=== PATIENT | male | born 1965 | race Two or more races ===

== ENCOUNTER 2024-11-18 14:38 | Emergency (ER) | payer MEDICAID, SELFPAY ==
[2024-11-18 14:38] VITALS: BMI 27.4
--- NOTE | 2024-11-18 15:19 | XR_ITS ---
Examination: PA lateral chest 2 views TECHNIQUE: Upright PA lateral chest 2 views Exam date and time: November 18, 2024 1558 hours Comparison 05/19/2024 INDICATIONS: Coughing today FINDINGS: Normal heart size Mild scarring in the lingular segment No interval pneumonia or pulmonary edema IMPRESSION: No interval pneumonia or pulmonary edema
[2024-11-18 15:25] VITALS: BP 132/82; PULSE 68; RESP 18; TEMP 36.9; O2SAT 95
[2024-11-18] MEDS: ALBUTEROL/IPRATROPIUM (Duoneb) RT SOL 3 ML NEBU INH (15:39)
[2024-11-18 15:41] VITALS: PULSE 62; RESP 18; O2SAT 97
[2024-11-18] MEDS: DEXAMETHASONE LIQ 1 MG/ML 10 MG PO (16:01)
--- NOTE | 2024-11-18 16:31 | PD.EDPED ---
ED General RME/HPI General Chief complaint: Flu Like Symptoms Stated complaint: COUGH X4 DAY Time Seen by Provider: 11/18/24 15:18 Arrival date/time: 11/18/24 14:38 58-year-old male presents to the emergency department today for complaints of cough, congestion and wheezing patient reports flulike symptoms ongoing for the last 4 days Limitations: no limitations Related Data Home Medications ?Medication ?Instructions ?Recorded ?Confirmed propranolol 10 mg tablet 10 mg PO QDAY 05/25/19 07/19/19 albuterol sulfate 90 mcg/actuation 2 puff inhalation Q6H PRN 07/15/19 07/19/19 aerosol inhaler (Ventolin HFA) Bronchospasm loratadine 10 mg tablet 10 mg PO QDAY 07/19/19 07/19/19 mometasone-formoterol HFA 200 2 puff inhalation BID 07/19/19 07/19/19 mcg-5 mcg/actuation aerosol inhaler (Dulera) ranitidine HCl 150 mg tablet 150 mg PO QDAY 07/19/19 07/19/19 Previous Rx's ?Medication ?Instructions ?Recorded guaifenesin 600 mg tablet, 600 mg PO BID PRN congestion #10 07/20/19 extended release 12 hr tabs levofloxacin 500 mg tablet 500 mg PO QDAY #10 tabs 07/20/19 (Levaquin) prednisone 20 mg tablet 20 mg PO QDAY #5 tabs 07/20/19 fexofenadine 180 mg tablet 180 mg PO Q24H #30 tabs 11/02/22 (Chaya Allergy) ibuprofen 800 mg tablet 800 mg PO TID PRN pain #30 tabs 01/17/24 albuterol sulfate 90 mcg/actuation 2 puff inhalation Q6H PRN 11/18/24 aerosol inhaler (Ventolin HFA) shortness of breath or wheezing #8.5 grams benzonatate 100 mg capsule 100 mg PO TID #14 caps 11/18/24 Allergies Allergy/AdvReac Type Severity Reaction Status Date / Time codeine Allergy Severe Rash Verified 11/18/24 14:40 hydrocodone (From Vicodin) Allergy Severe Swelling Verified 11/18/24 14:40 of Lip/Tongue/Throat morphine Allergy Severe Swelling Verified 11/18/24 14:40 of Lip/Tongue/Throat Penicillins Allergy Severe Swelling Verified 11/18/24 14:40 of Lip/Tongue/Throat Pediatric Review of Systems Systems Reviewed Systems Reviewed: All systems reviewed, normal except as documented Review of Systems Constitutional: Reports as per HPI; Denies fever Eyes: Reports as per HPI ENT: Reports as per HPI Cardiovascular: Reports as per HPI; Denies chest pain Respiratory: Reports as per HPI, cough, wheezing and sputum production; Denies dyspnea Gastrointestinal: Reports as per HPI; Denies abdominal pain, nausea or vomiting Past Medical History Past Medical History CARDIAC: Positive Hypertension; Negative Congestive Heart Failure RESPIRATORY: Positive Asthma; Negative Chronic Obstructive Pulmonary Disease (COPD) GASTROINTESTINAL: Positive Hepatitis GENITOURINARY: Negative Renal Disease ENDOCRINE: Negative Diabetes Mellitus Type 1 or Diabetes Mellitus Type 2 Social History SMOKING STATUS: Current some day smoker SECOND HAND EXPOSURE: No Ped Exam General Limitations: no limitations General appearance: well-appearing, well-hydrated, active and well-nourished Head Head exam: normocephalic, atruamatic and normal inspection Eye Eye exam: Present normal appearance, PERRL and EOMI; Absent conjunctival injection ENT ENT exam: normal exam, normal oropharynx and mucous membranes moist Neck Neck exam: Present normal inspection, full ROM and trachea midline Chest Chest inspection: Present normal inspection and symmetric chest wall rise Respiratory Respiratory exam: Present normal lung sounds bilaterally; Absent respiratory distress, wheezes, stridor, accessory muscle use or prolonged expiratory phase Cardiovascular Cardiovascular exam: Present regular rate, normal rhythm and normal heart sounds Abdominal Exam Abdominal exam: Present soft and normal bowel sounds; Absent distention or tenderness Extremities Exam Extremities exam: Present normal inspection, full ROM and normal capillary refill Back Exam Back exam: Present normal inspection, full ROM, tenderness and paraspinal tenderness; Absent CVA tenderness (R), CVA tenderness (L) or muscle spasm Neurological Exam Neurological exam: Present alert, oriented X3 and CN II-XII intact Skin Skin exam: Present warm, dry, intact and normal color Course Quality Measures none Orders Category Date Time Status Bedside Influenza A&B Antigen Test NOW Care 11/18/24 15:19 Completed XR chest 2V Stat Exams 11/18/24 15:19 Completed Albuterol/Ipratr Rt Ada [Duoneb Rt Ada] Med 11/18/24 15:30 Discontinued 3 ml INH X1 ONE Dexamethasone Liq [Decadron Liq] Med 11/18/24 15:30 Discontinued 10 mg PO X1 ONE Vital Signs Vital signs: Vital Signs Temperature 98.5 F 11/18/24 15:25 Pulse Rate 68 11/18/24 15:25 Respiratory Rate 18 11/18/24 15:25 Blood Pressure 132/82 H 11/18/24 15:25 Pulse Oximetry (%) 95 11/18/24 15:25 Oxygen Delivery Method Room Air 11/18/24 15:25 O2 saturation 95% room air within the limits Medical Decision Making [facility] Narrative MDM Narrative: 58-year-old male presents to the emergency department today for complaints of cough, congestion and wheezing patient reports flulike symptoms ongoing for the last 4 days On exam patient well-appearing patient does not appear ill or toxic patient does have diffuse wheezing bilaterally but does not have tachypnea or dyspnea Patient can breathe treatment as well as steroids Chest x-ray obtained no acute pneumonic infiltrates noted Patient checked for flu which came back negative At time of reevaluation patient's lungs are clear to auscultation Patient discharged home in no distress to follow-up with primary care doctor in the next 24 to 48 hours and for any worsening symptoms to return to the ER immediately Differential Diagnosis Differential Diagnosis: Back pain,, URI, COVID-19, pneumonia Medical Records Medical records reviewed: Yes I reviewed the patient's medical records. Lab Data Lab results reviewed: Yes I reviewed the patient's lab results. Radiology Data Radiology results reviewed: Yes I reviewed the patient's radiology results. MDM (ped) Patient data External records reviewed:: [facility] previous records Clinical information provided by:: patient Social determinants that could affect healthcare access:: none Patient has the following chronic illnesses:: See history How is presenting disease/condition affected by chronic disease/condition?: caused by Evaluation data The following diagnostics were reviewed and interpreted by me:: lab results and radiology exam(s) Lab and/or radiology exams considered but not ordered:: Labs radiology obtain Interpretation Summary: Reviewed by me Medications Medications considered but not ordered:: Given Medication administrations:: Medication Administration History Discontinued Medications Albuterol/Ipratropium (Albuterol/Ipratropium (Duoneb) Rt Ada 3 Ml Nebu) 3 ml INH X1 ONE Stop: 11/18/24 15:31 Last Admin: 11/18/24 15:39 Dose: 3 ml Documented By: TORSTEN Dexamethasone (Dexamethasone Liq 1 Mg/Ml) 10 mg PO X1 ONE Stop: 11/18/24 15:31 Last Admin: 11/18/24 16:01 Dose: 10 mg Documented By: Given Consultations Consultation(s) initiated? (list below): No Diagnosis Most likely diagnosis given after review of the tests above:: Asthma exacerbation, viral illness Admission Indicated Admission indicated?: not indicated Explain why admission is indicated or not indicated:: No criteria Admission Request Was there a request for admission?: No Disposition Plan Disposition Plan: Discharge Discharge Attestation Discharge Attestation: The patient and all family members were given an opportunity to ask questions and understood the discharge instructions. Discharge instructions specifically effects, indications for sooner follow up or return to the emergency department, and the expected course of current diagnosis. Patient condition: Stable Discharge Plan Plan Patient Disposition: HOME (Self Care) Disposition Comment: Stable Prescriptions/Referrals Prescriptions/Med Rec: New benzonatate 100 mg capsule 100 mg PO TID Qty: 14 0RF albuterol sulfate [Ventolin HFA] 90 mcg/actuation HFA aerosol inhaler 2 puff inhalation Q6H PRN (Reason: shortness of breath or wheezing) Qty: 8.5 0RF No Action ranitidine HCl 150 mg Tablet 150 mg PO QDAY loratadine 10 mg Tablet 10 mg PO QDAY Dulera 200-5 mcg/actuation HFA aerosol inhaler 2 puff inhalation BID Patient Comments: inhale 2 puffs by mouth and INTO THE LUNGS twice a day levofloxacin [Levaquin] 500 mg tablet 500 mg PO QDAY Qty: 10 0RF guaifenesin 600 mg tablet extended release 12hr 600 mg PO BID PRN (Reason: congestion) Qty: 10 0RF prednisone 20 mg tablet 20 mg PO QDAY Qty: 5 0RF propranolol 10 mg Tablet 10 mg PO QDAY albuterol sulfate [Ventolin HFA] 90 mcg/actuation Hfa Aerosol Inhaler 2 puff INHALATION Q6H PRN (Reason: Bronchospasm) fexofenadine [Chaya Allergy] 180 mg tablet 180 mg PO Q24H Qty: 30 0RF ibuprofen 800 mg tablet 800 mg PO TID PRN (Reason: pain) Qty: 30 0RF Problem List Clinical Impression: Cough, Wheezing Patient/Caregiver Discharge Instructions Education Materials: ED Cough Chronic Uncertain Cause Adult Additional Instructions: Please follow up with your primary care doctor in the next 24-48hrs for any worsening symptoms return here immediately Print Language: Croatian Stand Alone Forms: Janene Award Info., Patient Portal Info Letter PA/THERAPIST ASST Supervising Physician PA/THERAPIST ASST Supervising Physician: Dr. Peralta
== END 2024-11-18 17:10 | disposition home or self-care (01) ==
LOC: SERX 16:39
PROVIDERS: Emergency Provider Emergency Medicine
DX: R05.9 Cough, unspecified (principal); R06.2 Wheezing
CPT/HCPCS: 71046; 94640; 99283; A9270; J8540

== ENCOUNTER → 2025-06-28 | Outpatient (CLI) | payer MEDICAID, SELFPAY ==
--- NOTE | 2025-06-28 | XR_ITS ---
EXAMINATION: Shoulder bilateral, 6 views Technique: Shoulder AP internal rotation, AP external rotation, Y view each shoulder total 6 views Exam date and time : June 28, 2025, 1116 hours INDICATIONS: Bilateral shoulder pain beginning 2 weeks ago FINDINGS: Moderate osteopenia Bilateral advanced narrowing glenohumeral joints No shoulder fracture or dislocation Old fracture right clavicle No calcific tendinitis IMPRESSION: Bilateral advanced narrowing glenohumeral joint
--- NOTE | 2025-06-28 | XR_ITS ---
EXAMINATION: Cervical spine 3 views TECHNIQUE: AP lateral: AP odontoid cervical spine 3 views Date and time: June 28, 2025, 1121 hours INDICATIONS: Neck pain beginning 2 weeks ago. FINDINGS: Straightening normal cervical lordosis. No cervical fracture. Intact odontoid. Moderate degenerative disc disease C6-C7 with posterior osteophyte formation IMPRESSION: Moderate degenerative disc disease C6-C7
== END | disposition home or self-care (01) ==
LOC: CDIM 10:53
PROVIDERS: PCP Nurse Practitioner Family; Referring Provider Nurse Practitioner Family; Visit Provider Nurse Practitioner Family
DX: M50.323 Other cervical disc degeneration at C6-C7 level (principal); M25.812 Other specified joint disorders, left shoulder; M25.811 Other specified joint disorders, right shoulder
CPT/HCPCS: 72040; 73030

== ENCOUNTER 2025-08-28 19:36 | Emergency (ER) | payer MEDICAID, SELFPAY ==
[2025-08-28 19:37] VITALS: BMI 25.8
[2025-08-28 20:22] VITALS: BP 107/67; PULSE 86; RESP 16; TEMP 36.9; O2SAT 93
--- NOTE | 2025-08-28 20:46 | XR_ITS ---
EXAMINATION: PA lateral chest 2 views TECHNIQUE: Upright PA lateral chest 2 views Date and time: August 20, 2025, 2045 hours INDICATIONS: Coughing 1 week. FINDINGS: Normal heart size Moderate hyperexpansion Bibasilar and lingular segment left upper lobe pneumonia Prominent osteopenia Old fracture right clavicle IMPRESSION: COPD Bibasilar and lingular segment left upper lobe pneumonia
--- NOTE | 2025-08-28 20:47 | PD.EDURI ---
Upper Respiratory Inf. RME/HPI General Chief Complaint: Flu Like Symptoms Stated Complaint: COUGHING Time Seen by Provider: 08/28/25 20:57 Arrival date/time: 08/28/25 19:36 59-year-old male patient came in for evaluation regarding cough patient's been having cough for the last 1 week, associated with left-sided chest pain and coughing. Denies any fever denies any shortness of breath denies any ill contacts denies any other complaints no medication was taken prior to ER visit. Related Data Home Medications ?Medication ?Instructions ?Recorded ?Confirmed propranolol 10 mg tablet 10 mg PO QDAY 05/25/19 07/19/19 albuterol sulfate 90 mcg/actuation 2 puff inhalation Q6H PRN 07/15/19 07/19/19 aerosol inhaler (Ventolin HFA) Bronchospasm loratadine 10 mg tablet 10 mg PO QDAY 07/19/19 07/19/19 mometasone-formoterol HFA 200 2 puff inhalation BID 07/19/19 07/19/19 mcg-5 mcg/actuation aerosol inhaler (Dulera) ranitidine HCl 150 mg tablet 150 mg PO QDAY 07/19/19 07/19/19 Previous Rx's ?Medication ?Instructions ?Recorded guaifenesin 600 mg tablet, 600 mg PO BID PRN congestion #10 07/20/19 extended release 12 hr tabs levofloxacin 500 mg tablet 500 mg PO QDAY #10 tabs 07/20/19 (Levaquin) prednisone 20 mg tablet 20 mg PO QDAY #5 tabs 07/20/19 fexofenadine 180 mg tablet 180 mg PO Q24H #30 tabs 11/02/22 (Hcaya Allergy) ibuprofen 800 mg tablet 800 mg PO TID PRN pain #30 tabs 01/17/24 albuterol sulfate 90 mcg/actuation 2 puff inhalation Q6H PRN 11/18/24 aerosol inhaler (Ventolin HFA) shortness of breath or wheezing #8.5 grams benzonatate 100 mg capsule 100 mg PO TID #14 caps 11/18/24 acetaminophen 500 mg tablet 500 mg PO Q4H PRN fever or pain 08/28/25 (Tylenol Extra Strength) #30 tabs azithromycin 250 mg tablet 250 mg PO QDAY 4 days #4 tabs 08/28/25 benzonatate 100 mg capsule 100 mg PO BID PRN cough #14 caps 08/28/25 doxycycline hyclate 100 mg capsule 100 mg PO BID 10 days #20 caps 08/28/25 Allergies Allergy/AdvReac Type Severity Reaction Status Date / Time codeine Allergy Severe Rash Verified 08/28/25 19:36 hydrocodone (From Vicodin) Allergy Severe Swelling Verified 08/28/25 19:36 of Lip/Tongue/Throat morphine Allergy Severe Swelling Verified 08/28/25 19:36 of Lip/Tongue/Throat Penicillins Allergy Severe Swelling Verified 08/28/25 19:36 of Lip/Tongue/Throat Review of Systems Review of Systems Narrative Review of Systems: Review of system reviewed and within normal limits except mentioned in HPI ED Exam Narrative Physical exam: VITAL SIGNS: Reviewed. GENERAL APPEARANCE: Alert and interactive, follows commands, no acute distress, HEAD AND FACE: Non-traumatic. ENT: PERRL, pink conjunctivitis, eyelid no trauma, Mucous membrane moist. NECK: Supple, nontender, no nuchal rigidity. CHEST: No tenderness, no crepitus, no paradoxical movement, no retractions. LUNGS: Clear, well ventilated, symmetric, no rales, no wheezing, no ronchi, no stridor, good breath sounds bilaterally. HEART: Regular rate, regular rhythm, no murmur, no gallops. ABDOMEN: Soft, positive bowel sounds, nondistended, no guarding, nontender, no rebound, no masses, RECTAL: Deferred. GENITAL: Deferred. NEUROLOGICAL: Gross motor function intact sensory function intact, Appropriate for age. MUSCULOSKELETAL: low back nontender, full range of motion. EXTREMITIES: Nontender, full range of motion. SKIN: Color pink, dry, no rash, no lacerations, no abrasions, no contusions. LYMPHATICS: Deferred. Course Quality Measures none Orders Category Date Time Status Bedside COVID-19 Antigen Test NOW Care 08/28/25 20:47 Completed Bedside Influenza A&B Antigen Test NOW Care 08/28/25 20:47 Completed XR chest 2V Stat Exams 08/28/25 20:46 Completed Azithromycin Po [Zithromax PO] Med 08/28/25 21:31 Discontinued 500 mg PO X1 ONE Doxycycline [Vibramycin] Med 08/28/25 21:31 Discontinued 100 mg PO X1 ONE guaiFENesin SYRUP [Robitussin Syrup] Med 08/28/25 20:46 Discontinued 200 mg PO X1 ONE predniSONE Med 08/28/25 20:46 Discontinued 60 mg PO X1 ONE Vital Signs Vital signs: Vital Signs Temperature 98.5 F 08/28/25 20:22 Pulse Rate 86 08/28/25 20:22 Respiratory Rate 16 08/28/25 20:22 Blood Pressure 107/67 08/28/25 20:22 Pulse Oximetry (%) 93 L 08/28/25 20:22 Oxygen Delivery Method Room Air 08/28/25 20:22 Upper Respiratory Infection MDM Narrative MDM Narrative:: 59-year-old male patient came in for evaluation regarding cough patient's been having cough for the last 1 week, associated with left-sided chest pain and coughing. Denies any fever denies any shortness of breath denies any ill contacts denies any other complaints no medication was taken prior to ER visit. Chest x-ray showed pneumonia. Patient was sent home on antibiotic. Stable for discharge home Patient data External records reviewed:: None Clinical information provided by:: patient Social determinants that could affect healthcare access:: none Patient has the following chronic illnesses:: None How is presenting disease/condition affected by chronic disease/condition?: no chronic disease Evaluation data The following diagnostics were reviewed and interpreted by me:: radiology exam(s) Lab and/or radiology exams considered but not ordered:: None Interpretation Summary: See above Medications / Prescriptions Medications or Prescriptions considered but not ordered:: None Medication administrations:: Medication Administration History Discontinued Medications Azithromycin (Azithromycin 250 Mg Tablet) 500 mg PO X1 ONE Stop: 08/28/25 21:32 Last Admin: 08/28/25 21:44 Dose: 500 mg Documented By: OA Doxycycline Hyclate (Doxycycline 100 Mg Tablet) 100 mg PO X1 ONE Stop: 08/28/25 21:32 Last Admin: 08/28/25 21:44 Dose: 100 mg Documented By: OA Guaifenesin (Guaifenesin Syrup 200 Mg/10 Ml Udc) 200 mg PO X1 ONE; Protocol Stop: 08/28/25 20:47 Last Admin: 08/28/25 21:12 Dose: 200 mg Documented By: OA Prednisone (Prednisone 20 Mg Tablet) 60 mg PO X1 ONE Stop: 08/28/25 20:47 Last Admin: 08/28/25 21:11 Dose: 60 mg Documented By: OA See above Consultations Consultation(s) initiated? (list below): No Diagnosis Upper Respiratory Differential Diagnosis: upper respiratory infection, viral infection and other (Pneumonia) Most likely diagnosis given after review of the tests above:: Pneumonia Admission Indicated Admission indicated?: not indicated Admission Request Was there a request for admission?: No Disposition Plan Disposition Plan: Discharge Discharge Attestation Discharge Attestation: The patient was given an opportunity to ask questions and understood the discharge instructions. Discharge instructions specifically effects, indications for sooner follow up or return to the emergency department, and the expected course of current diagnosis. Patient condition: Stable Discharge Plan Plan Patient Disposition: HOME (Self Care) Prescriptions/Referrals Prescriptions/Med Rec: New azithromycin 250 mg tablet 250 mg PO QDAY 4 Days Qty: 4 0RF Rx Instructions: start on day 2 of therapy doxycycline hyclate 100 mg capsule 100 mg PO BID 10 Days Qty: 20 0RF benzonatate 100 mg capsule 100 mg PO BID PRN (Reason: cough) Qty: 14 0RF acetaminophen [Tylenol Extra Strength] 500 mg tablet 500 mg PO Q4H PRN (Reason: fever or pain) Qty: 30 0RF No Action ranitidine HCl 150 mg Tablet 150 mg PO QDAY loratadine 10 mg Tablet 10 mg PO QDAY Dulera 200-5 mcg/actuation HFA aerosol inhaler 2 puff inhalation BID Patient Comments: inhale 2 puffs by mouth and INTO THE LUNGS twice a day levofloxacin [Levaquin] 500 mg tablet 500 mg PO QDAY Qty: 10 0RF guaifenesin 600 mg tablet extended release 12hr 600 mg PO BID PRN (Reason: congestion) Qty: 10 0RF prednisone 20 mg tablet 20 mg PO QDAY Qty: 5 0RF propranolol 10 mg Tablet 10 mg PO QDAY albuterol sulfate [Ventolin HFA] 90 mcg/actuation Hfa Aerosol Inhaler 2 puff INHALATION Q6H PRN (Reason: Bronchospasm) fexofenadine [Chaya Allergy] 180 mg tablet 180 mg PO Q24H Qty: 30 0RF ibuprofen 800 mg tablet 800 mg PO TID PRN (Reason: pain) Qty: 30 0RF benzonatate 100 mg capsule 100 mg PO TID Qty: 14 0RF albuterol sulfate [Ventolin HFA] 90 mcg/actuation HFA aerosol inhaler 2 puff inhalation Q6H PRN (Reason: shortness of breath or wheezing) Qty: 8.5 0RF Referrals: No Primary/Family,Physician [Primary Care Provider] - In 1 week Problem List Clinical Impression: Pneumonia Patient/Caregiver Discharge Instructions Education Materials: Treating Pneumonia Additional Instructions: Advised patient utilize antibiotics as directed to completion as well as additional medication as needed. Good hydration and healthy nutrition has been advised throughout. Print Language: Bhutanese Stand Alone Forms: Janene Award Info., Patient Portal Info Letter
[2025-08-28] MEDS: guaiFENesin SYRUP 200 MG/10 ML UDC PO (21:12)
--- NOTE | 2025-08-28 21:34 | PD.EDURI ---
Upper Respiratory Inf. RME/HPI General Chief Complaint: Flu Like Symptoms Stated Complaint: COUGHING Time Seen by Provider: 08/28/25 20:57 Source: patient Arrival date/time: 08/28/25 19:36 Mode of arrival: ambulatory Limitations: no limitations RME / HPI RME / HPI Narrative: This patient is a 59-year-old male who arrives to the ED today for evaluation of flulike symptoms including cough, body aches and some chest congestion. Patient states the symptoms came on and been unrelenting. Patient states possible subjective fever. Vital signs were stable arrival. Related Data Home Medications ?Medication ?Instructions ?Recorded ?Confirmed propranolol 10 mg tablet 10 mg PO QDAY 05/25/19 07/19/19 albuterol sulfate 90 mcg/actuation 2 puff inhalation Q6H PRN 07/15/19 07/19/19 aerosol inhaler (Ventolin HFA) Bronchospasm loratadine 10 mg tablet 10 mg PO QDAY 07/19/19 07/19/19 mometasone-formoterol HFA 200 2 puff inhalation BID 07/19/19 07/19/19 mcg-5 mcg/actuation aerosol inhaler (Dulera) ranitidine HCl 150 mg tablet 150 mg PO QDAY 07/19/19 07/19/19 Previous Rx's ?Medication ?Instructions ?Recorded guaifenesin 600 mg tablet, 600 mg PO BID PRN congestion #10 07/20/19 extended release 12 hr tabs levofloxacin 500 mg tablet 500 mg PO QDAY #10 tabs 07/20/19 (Levaquin) prednisone 20 mg tablet 20 mg PO QDAY #5 tabs 07/20/19 fexofenadine 180 mg tablet 180 mg PO Q24H #30 tabs 11/02/22 (Chaya Allergy) ibuprofen 800 mg tablet 800 mg PO TID PRN pain #30 tabs 01/17/24 albuterol sulfate 90 mcg/actuation 2 puff inhalation Q6H PRN 11/18/24 aerosol inhaler (Ventolin HFA) shortness of breath or wheezing #8.5 grams benzonatate 100 mg capsule 100 mg PO TID #14 caps 11/18/24 acetaminophen 500 mg tablet 500 mg PO Q4H PRN fever or pain 08/28/25 (Tylenol Extra Strength) #30 tabs azithromycin 250 mg tablet 250 mg PO QDAY 4 days #4 tabs 08/28/25 benzonatate 100 mg capsule 100 mg PO BID PRN cough #14 caps 08/28/25 doxycycline hyclate 100 mg capsule 100 mg PO BID 10 days #20 caps 08/28/25 Allergies Allergy/AdvReac Type Severity Reaction Status Date / Time codeine Allergy Severe Rash Verified 08/28/25 19:36 hydrocodone (From Vicodin) Allergy Severe Swelling Verified 08/28/25 19:36 of Lip/Tongue/Throat morphine Allergy Severe Swelling Verified 08/28/25 19:36 of Lip/Tongue/Throat Penicillins Allergy Severe Swelling Verified 08/28/25 19:36 of Lip/Tongue/Throat Review of Systems Review of Systems Systems Reviewed: All systems reviewed, normal except as documented Past Medical History Past Medical History CARDIAC: Positive Hypertension; Negative Congestive Heart Failure RESPIRATORY: Positive Asthma; Negative Chronic Obstructive Pulmonary Disease (COPD) GASTROINTESTINAL: Positive Hepatitis GENITOURINARY: Negative Renal Disease ENDOCRINE: Negative Diabetes Mellitus Type 1 or Diabetes Mellitus Type 2 Social History SMOKING STATUS: Current every day smoker SECOND HAND EXPOSURE: No ED Exam General Limitations: Present no limitations General appearance: Present alert and in distress (Patient appeared moderately toxic at time of evaluation.) Head Head exam: Present atraumatic Eye Eye exam: Present normal appearance, PERRL and EOMI ENT ENT exam: Present normal exam, normal oropharynx and mucous membranes moist Neck Neck exam: Present normal inspection, full ROM and trachea midline Chest Chest inspection: Present normal inspection and symmetric chest wall rise Respiratory Respiratory exam: Present other (Right lower lobe and left lower lobe rhonchi appreciated. No accessory muscle use. No signs of respiratory distress.) Cardiovascular Cardiovascular exam: Present regular rate, normal rhythm and normal heart sounds Abdominal Exam Abdominal exam: Present soft and normal bowel sounds Extremities Exam Extremities exam: Present normal inspection and full ROM Back Exam Back exam: Present normal inspection and full ROM Neurological Exam Neurological exam: Present alert, oriented X3 and CN II-XII intact Psychiatric Psychiatric exam: Present normal affect and normal mood Skin Skin exam: Present warm, dry, intact and normal color Course Quality Measures none Orders Category Date Time Status Bedside COVID-19 Antigen Test NOW Care 08/28/25 20:47 Active Bedside Influenza A&B Antigen Test NOW Care 08/28/25 20:47 Completed XR chest 2V Stat Exams 08/28/25 20:46 Completed Azithromycin Po [Zithromax PO] Med 08/28/25 21:31 Discontinued 500 mg PO X1 ONE Doxycycline [Vibramycin] Med 08/28/25 21:31 Discontinued 100 mg PO X1 ONE guaiFENesin SYRUP [Robitussin Syrup] Med 08/28/25 20:46 Discontinued 200 mg PO X1 ONE predniSONE Med 08/28/25 20:46 Discontinued 60 mg PO X1 ONE As noted above Vital Signs Vital signs: Vital Signs Temperature 98.5 F 08/28/25 20:22 Pulse Rate 86 08/28/25 20:22 Respiratory Rate 16 08/28/25 20:22 Blood Pressure 107/67 08/28/25 20:22 Pulse Oximetry (%) 93 L 08/28/25 20:22 Oxygen Delivery Method Room Air 08/28/25 20:22 As noted above Upper Respiratory Infection MDM Narrative MDM Narrative:: All studies performed at the ED were evaluated by me personally. Imaging studies confirmed a pneumonia diagnosis. Patient was given his first dose of antibiotics prior to discharge. Advised patient to utilize antibiotics as directed and to completion as well as additional medication as needed. Good hydration and healthy nutrition has been advised throughout. Patient data External records reviewed:: [facility] previous records Clinical information provided by:: patient Social determinants that could affect healthcare access:: none Patient has the following chronic illnesses:: None How is presenting disease/condition affected by chronic disease/condition?: no chronic disease Evaluation data The following diagnostics were reviewed and interpreted by me:: lab results and radiology exam(s) Lab and/or radiology exams considered but not ordered:: None Interpretation Summary: Pneumonia Medications / Prescriptions Medications or Prescriptions considered but not ordered:: None Medication administrations:: Medication Administration History Discontinued Medications Azithromycin (Azithromycin 250 Mg Tablet) 500 mg PO X1 ONE Stop: 08/28/25 21:32 Doxycycline Hyclate (Doxycycline 100 Mg Tablet) 100 mg PO X1 ONE Stop: 08/28/25 21:32 Guaifenesin (Guaifenesin Syrup 200 Mg/10 Ml Udc) 200 mg PO X1 ONE; Protocol Stop: 08/28/25 20:47 Last Admin: 08/28/25 21:12 Dose: 200 mg Documented By: OA Prednisone (Prednisone 20 Mg Tablet) 60 mg PO X1 ONE Stop: 08/28/25 20:47 Last Admin: 08/28/25 21:11 Dose: 60 mg Documented By: OA As noted above Consultations Consultation(s) initiated? (list below): No Diagnosis Upper Respiratory Differential Diagnosis: upper respiratory infection, viral infection, influenza and other (Pneumonia) Most likely diagnosis given after review of the tests above:: Pneumonia Admission Indicated Admission indicated?: not indicated Explain why admission is indicated or not indicated:: Unwarranted Admission Request Was there a request for admission?: No Disposition Plan Disposition Plan: Discharge Discharge Attestation Discharge Attestation: The patient and all family members were given an opportunity to ask questions and understood the discharge instructions. Discharge instructions specifically effects, indications for sooner follow up or return to the emergency department, and the expected course of current diagnosis. Patient condition: Stable Discharge Plan Plan Patient Disposition: HOME (Self Care) Prescriptions/Referrals Prescriptions/Med Rec: New azithromycin 250 mg tablet 250 mg PO QDAY 4 Days Qty: 4 0RF Rx Instructions: start on day 2 of therapy doxycycline hyclate 100 mg capsule 100 mg PO BID 10 Days Qty: 20 0RF benzonatate 100 mg capsule 100 mg PO BID PRN (Reason: cough) Qty: 14 0RF acetaminophen [Tylenol Extra Strength] 500 mg tablet 500 mg PO Q4H PRN (Reason: fever or pain) Qty: 30 0RF No Action ranitidine HCl 150 mg Tablet 150 mg PO QDAY loratadine 10 mg Tablet 10 mg PO QDAY Dulera 200-5 mcg/actuation HFA aerosol inhaler 2 puff inhalation BID Patient Comments: inhale 2 puffs by mouth and INTO THE LUNGS twice a day levofloxacin [Levaquin] 500 mg tablet 500 mg PO QDAY Qty: 10 0RF guaifenesin 600 mg tablet extended release 12hr 600 mg PO BID PRN (Reason: congestion) Qty: 10 0RF prednisone 20 mg tablet 20 mg PO QDAY Qty: 5 0RF propranolol 10 mg Tablet 10 mg PO QDAY albuterol sulfate [Ventolin HFA] 90 mcg/actuation Hfa Aerosol Inhaler 2 puff INHALATION Q6H PRN (Reason: Bronchospasm) fexofenadine [Chaya Allergy] 180 mg tablet 180 mg PO Q24H Qty: 30 0RF ibuprofen 800 mg tablet 800 mg PO TID PRN (Reason: pain) Qty: 30 0RF benzonatate 100 mg capsule 100 mg PO TID Qty: 14 0RF albuterol sulfate [Ventolin HFA] 90 mcg/actuation HFA aerosol inhaler 2 puff inhalation Q6H PRN (Reason: shortness of breath or wheezing) Qty: 8.5 0RF Referrals: No Primary/Family,Physician [Primary Care Provider] - In 1 week Problem List Clinical Impression: Pneumonia Patient/Caregiver Discharge Instructions Education Materials: Treating Pneumonia Additional Instructions: Advised patient utilize antibiotics as directed to completion as well as additional medication as needed. Good hydration and healthy nutrition has been advised throughout. Print Language: Armenian Stand Alone Forms: Janene Award Info., Patient Portal Info Letter
[2025-08-28] MEDS: DOXYCYCLINE 100 MG TABLET PO (21:44)
[2025-08-28] MEDS: AZITHROMYCIN 250 MG TABLET 500 MG PO (21:44)
== END 2025-08-28 21:52 | disposition home or self-care (01) ==
PROVIDERS: Emergency Provider Emergency Medicine
DX: J18.9 Pneumonia, unspecified organism (principal)
CPT/HCPCS: 71046; 87502; 87635; 99283; J7512; A9270